=== PATIENT | female | born 1975 | race Caucasian/White ===

== ENCOUNTER → 2017-01-31 | Day surgery (SDC) | payer OTHER ==
[~2017-01-31] VITALS: Ht 154.9 cm; Wt 53.9 kg
[~2017-01-31] MED LIST: BUPIVACAINE/EPINEPHRINE 0.5% 50 ML VIAL ONE; CETI10CA3 PO; CHLORHEXIDINE GLUCONATE 2 % 1 PACK (2 CLOTHS) TOPICAL PRN; DEXAMETHASONE SOD PHOS 4 MG/ML VIAL IV ONE; DO NOT ADM ANY ANTICOAGULANT DRUGS PRN; FLUORESCEIN SOD 10% SOLN 500 MG/5 ML AMP ONE; GLYCOPYRROLATE 1 MG/5 ML SYRINGE IV PUSH ONE; INSULIN HUMAN REGULAR 1,000 UNITS/10 ML VIAL SQ PRN; KETOROLAC TROMETHAMINE 30 MG/ML (IVP) VIAL IV PUSH ONE; LACTATED RINGER'S 1000 ML IV PRN; LIDOCAINE HCL 1% PF 5 ML AMPULE OTHER ONE; METOPROLOL TARTRATE 25 MG TAB PO PRN; MIDAZOLAM HCL 2 MG/2 ML VIAL IV ONE; NEOSTIGMINE 3 MG/3 ML SYR IV ONE; ONDANSETRON HCL 4 MG/2 ML VIAL IV PUSH ONE; POVIDONE IODINE 5% (ANTISEPSIS KIT) 4 APPLICATIONS EACH NARE PRN; PROPOFOL 200 MG/20 ML AMP IV ONE; ROCURONIUM INJ 50 MG/5 ML VIAL IV ONE; SODIUM CHLORID 0.9% 500 ML IV PRN; SODIUM CHLORIDE 0.9% 20 ML VIAL ONE; VASOPRESSIN 20 UNITS/ML VIAL (IVTITR) ONE; ceFAZolin 1,000 MG/NS 100 ML IV SCH; ePHEDrine/NS 25 MG/5 ML SYR IV ONE; oxyCODONE/ACETAMINOPHEN 5 MG/325 MG TAB PO PRN
--- NOTE | 2017-01-31 07:56 | PD.OP ---
Operative Report Date of Surgery: Jan 31, 2017 Preoperative Diagnosis: (1) Cyst of right ovary (2) Pelvic and perineal pain (3) Family history of malignant neoplasm of ovary in first degree relative Postoperative Diagnosis: (1) Cyst of right ovary (2) Pelvic and perineal pain (3) Family history of malignant neoplasm of ovary in first degree relative Procedure: 1. laparoscopic right salpingo oophorectomy 2. laparoscopic left salpingectomy Anesthesia: BRANDON Surgeon: Lois Rubio Occupational Therapist Home Based(s): OR Staff Operation and Findings: IVF: 1200 ml LR + IV antibiotics EBL: < 20 ml UO: about 30 ml Findings: 1. pelvic varicose veins L > R 2. large R ovarian cyst 3. normal uterus Specimens: 1. left fallopian tube 2. right fallopian tube and ovary Complications: none Condition: stable Disposition: PACU Description of the procedure: I discussed the risks, benefits and alternatives of the procedure with the patient. Her questions were answered, informed consent was signed by patient, the patient verbalized understanding. She was then taken to the operating room with her IV running, was placed in the supine position and was given general anesthesia without difficulties or complications.The patient was then placed in the dorsal lithotomy position and was prepped and draped in the usual sterile fashion. Attention was first turned to the patient's pelvic area. A bivalved speculum was introduced inside the patient's vagina. The anterior aspect of the cervix was grasped with a single tooth tenaculum for manipulation. The cervix was carefully dilated. A uterine manipulator was carefully introduced inside the uterus. The surgeon changed gloves and attention was then turned to the patient's abdomen. A vertical umbilical incision was made with the scalpel. A 5 mm trocar was introduced inside the patient's abdomen under direct visualization. A pneumo -peritoneum was created with CO2 gas. One other 5 mm and one 10 mm trocars were introduced inside the patient's abdomen under direct visualization in the lower left and mid abdomen. A survey of the patient's abdomen revealed normal anatomy. A survey of the patient's pelvis revealed the findings listed above. First, pelvic washings were obtained from the pelvis and right adnexa. Next, a right salpingo-oophorectomy was done without difficulties using the Harmonic scalpel. The tissues were placed inside an endo bag and were sent to pathology. The left fallopian tube was carefully removed with the Harmonic scalpel and sent to pathology as well. Copious irrigation was done. Excellent hemostasis was noted. All instruments were removed from patient's abdomen. The trocars were removed under direct visualization and the sites were noted to be hemostatic. The CO2 gas was carefully expressed out of the patient's abdomen. The subcutaneous tissues were injected with 0.5 % Marcaine. The fascial incision under the 10 mm skin was reapproximated with a figure eight stitch of O-Vicryl. The skin incisions were reapproximated with subcutaneous stitches using 4-0 Vicryl. Mastisol and steri strips were placed over the incisions. After the abdominal incisions were closed, attention was turned to the pelvic area. A bivalve speculum was placed inside the patient's vagina. Good hemostasis was noted. The uterine manipulator and speculum were removed. The patient tolerated the procedure well. She was successfully extubated and transferred to PACU in stable condition. Note: I discussed the surgical procedure and surgical findings with patient's in a phone call; he verbalized understanding and agreement to the procedures done; his questions were answered. Lois Rubio MD Jan 31, 2017 07:56
[2017-01-31 16:13] VITALS: BP 93/53; PULSE 57; RESP 16; TEMP 96.8; O2SAT 100
== END | disposition home or self-care (01) ==
LOC: HSDC 10:35
PROVIDERS: ATTEND Obstetrics & Gynecology
DX: D27.0 Benign neoplasm of right ovary (principal); R10.2 Pelvic and perineal pain; Z80.41 Family history of malignant neoplasm of ovary
CPT/HCPCS: 00840; 58661; 88305; 88307; J0690; J1100; J1885; J2250; J2405; J2710; J3010; J7120; 88304